=== PATIENT | female | born 1965 | race Caucasian/White ===

== ENCOUNTER 2018-01-25 09:43 | Emergency (ER) | payer MEDICAID ==
[2018-01-25 09:51] VITALS: BP 120/83
--- NOTE | 2018-01-25 10:04 | EDPHY ---
H & P Stated Complaint: right eye visual changes starting suddenly this morning Time Seen by Provider: 01/25/18 10:01 HPI/ROS: HPI: This is a 52-year-old female who presents with Chief Complaint: right eye visual changes starting suddenly this morning Location: Right eye Quality: Visual changes Duration: 1 hr prior to arrival Signs and Symptoms: no fever, no nausea, no vomiting, no photophobia, no noise sensitivity, no neck stiffness, no ear pain, no tinnitus, no nasal congestion, no sinus pressure, no weakness, no radiation, no aura, + floaters Timing: Acute Severity: [id number] Context: Patient has a history of optic migraines, presents with sudden onset of matting in her peripheral vision starting approximately 1 hr prior to arrival. She reports that she normally gets floaters and aura with her optic migraines and no actual headache. She reports that this feels different. She reports that she can see things but they are significantly decreased in her periphery on the right. This is abnormal for her. She has no nausea, vomiting , pain. Modifying Factors: None Comment: ROS: see HPI Constitutional: No fever, no chills, no weight loss Eyes: No blurred vision Respiratory: No shortness of breath, no cough Cardiovascular: No chest pain, no palpitations Gastrointestinal: No nausea, no vomiting, no diarrhea, no hematemesis, no blood in stool Genitourinary: No dysuria, no blood in urine Extremities: No myalgias, no edema Neurologic: No weakness, no numbness Skin: No rashes, no petechiae Hematologic: No bruising, no bleeding MEDICAL/SURGICAL/SOCIAL HISTORY: Medical history: Generally healthy. Does not take any regular medications. Surgical history: Denies Social history: Family history noncontributory. General appearance: Overweight middle-aged white female, awake and alert, polite and cooperative Visual Acuity: noted from Nurse's notes. Pupils: equal round and reactive to light. EOMI. Lids: no edema or swelling Skin: no proptosis, no periorbital erythema or swelling, no vesicles Conjunctivae: not injected, no discharge Source: Patient Exam Limitations: No limitations - Personal History LMP (Females 10-55): Post Menopausal - Medical/Surgical History Hx Asthma: No Hx Chronic Respiratory Disease: No Hx Diabetes: No Hx Cardiac Disease: No Hx Renal Disease: No Hx Cirrhosis: No Hx Alcoholism: No Hx HIV/AIDS: No Hx Splenectomy or Spleen Trauma: No Other PMH: hypothyroid, ortho sx - Social History Smoking Status: Never smoked Constitutional: Initial Vital Signs Temperature (C) 36.6 C 01/25/18 09:48 Heart Rate 94 01/25/18 09:48 Respiratory Rate 18 01/25/18 09:48 Blood Pressure 120/83 H 01/25/18 09:48 O2 Sat (%) 93 01/25/18 09:48 O2 Delivery Mode Room Air Allergies/Adverse Reactions: No Known Allergies Allergy (Unverified 01/25/18 09:47) Home Medications: Medication Instructions Recorded Effexor Xr 01/25/18 Liothyronine Sodium 01/25/18 Synthroid 01/25/18 Medical Decision Making ED Course/Re-evaluation: Vital signs reviewed and stable upon arrival. Patient has peripheral right sided decreased vision. Etiology is optic migraine versus retinal pathology. ED decision to consult retinal specialist, Dr. Garcia, who advises to sent patient directly to her office from the emergency room for further evaluation. Patient is very concerned about her retina and is appreciative to be seen by retinal specialist. This patient was seen under the supervision of my secondary supervising physician. I evaluated care for this patient independently. Discussed this patient with Dr. Valera. Differential Diagnosis: Headache including but not limited to subarachnoid hemorrhage, migraine headache , tension headache and infectious causes such as meningitis, pharyngitis and sinusitis. Departure - Departure Disposition: Home, Routine, Self-Care Clinical Impression: Decreased peripheral vision of right eye Condition: Good Instructions: Ocular Migraine (ED) Additional Instructions: Please go directly to Dr. Garcia's office for further evaluation of your retina. Referrals: Karen Garcia MD [Non Staff Provider (MD)] - As per Instructions
== END 2018-01-25 10:20 | disposition home or self-care (01) ==
DX: H53.9 Unspecified visual disturbance (principal)

== ENCOUNTER 2018-09-12 10:09 | Emergency (ER) | payer MEDICAID ==
--- NOTE | 2018-09-12 10:31 | EDPHY ---
H & P Stated Complaint: umbillical abscess Time Seen by Provider: 09/12/18 10:16 HPI/ROS: CHIEF COMPLAINT: Possible umbilical abscess HISTORY OF PRESENT ILLNESS: 52-year-old immunocompetent female history of abdominoplasty 7 years ago with surgical umbilicus at that time, initially reported on 08/22/2018 erythema discharge from her umbilicus, seen at [facility] where she had incision and drainage. She has been following up at [facility] urgent care. Today when she returned the noted continued drainage and recommend she go to the ER for evaluation of possible deep space abscess. The patient notes pain in the umbilical region as well as continued purulent drainage with fetid odor. REVIEW OF SYSTEMS: 10 systems reviewed and negative with the exception of the elements mentioned in the history of present illness PAST MEDICAL & SURGICAL HISTORY: Abdominoplasty 7 years ago SOCIAL HISTORY: Nonsmoker. PHYSICAL EXAM (Prior to examination, patient consented to physical exam, hands were washed and my usual and customary physical exam procedures followed) 1) GENERAL: Well-developed, well-nourished, alert and oriented. Appears to be in no acute distress. 2) HEAD: Normocephalic, atraumatic 3) HEENT: Pupils equal, round, reactive to light bilaterally. Sclera anicteric. Nasopharynx, oropharynx, clear, no lesions. Moist Mucous membranes. 4) NECK: Full range of motion, no meningeal signs. 5) LUNGS: Clear auscultation bilaterally, no wheezes, no rhonchi, no retractions. 6) HEART: Regular rate and rhythm, no murmur, no heave, no gallop. 7) ABDOMEN: No guarding, no rebound, no focal tenderness, . No peritoneal sign. There is fetid odor and drainage from the umbilicus as well as associated tenderness., subacute incision noted with granulating tissue. Mild amount of fluctuance at said area. Mild amount of halo erythema. 8) MUSCULOSKELETAL: Moving all extremities, no focal areas of tenderness, no obvious trauma. No peripheral edema or discoloration. 9) BACK: No CVA tenderness, no midline vertebral tenderness, no fluctuance, no step-off, no obvious trauma, no visual or palpable abnormality. 10) SKIN: No rash, no petechiae. 11) Psychiatric: Patient is oriented X 3, there is no agitation. DIFFERENTIAL DIAGNOSIS: In no particular order including but not limited to cellulitis, abscess, hernia - Medical/Surgical History Hx Asthma: No Hx Chronic Respiratory Disease: No Hx Diabetes: No Hx Cardiac Disease: No Hx Renal Disease: No Hx Cirrhosis: No Hx Alcoholism: No Hx HIV/AIDS: No Hx Splenectomy or Spleen Trauma: No Other PMH: hypothyroid, ortho sx - Social History Smoking Status: Never smoked Constitutional: Initial Vital Signs Temperature (C) 37.1 C 09/12/18 10:28 Heart Rate 102 H 09/12/18 10:28 Respiratory Rate 18 09/12/18 10:28 Blood Pressure 177/121 H 09/12/18 10:28 O2 Sat (%) 94 09/12/18 10:28 O2 Delivery Mode Room Air Allergies/Adverse Reactions: No Known Allergies Allergy (Verified 09/12/18 10:27) Home Medications: Medication Instructions Recorded Liothyronine Sodium 01/25/18 Synthroid 01/25/18 Cephalexin [Keflex] 500 mg PO TID 7 Days cap 09/12/18 VENLAFAXINE HCL 09/12/18 VYVANSE 09/12/18 Medical Decision Making - Diagnostics Imaging Results: Imaging Impressions Abdomen CT 09/12/18 11:22 Impression: 1. Superficial umbilical inflammation. No abdominal wall abscess, umbilical hernia, or inflammatory extension into the peritoneal space. 2. Constipation. Normal bowel pattern. 3. Uterine leiomyoma. Findings discussed with emergency department physician assistant professor of radiology, Earnest Johnson PA-C on September 12, 2018 at 11:54 a.m. Images reviewed myself Procedures: Procedure: Abscess drainage. The patient's suspected abscess was located on the umbilicus. I obtained verbal consent from the patient to drain the abscess who was informed about the possibility of bleeding and pain. The abscess was incised with a scalpel and no purulent drainage was expressed. I irrigated the wound and placed some packing. The patient tolerated the procedure well. The procedure was performed by myself. ED Course/Re-evaluation: Reviewed the patient's old medical records as well including her wound culture dated 08/22/2018 positive for Actinomyces europaeus. Here in emergency department CT was performed to evaluate for deep space infection or fistula. There is no evidence of this on exam. I reopened her small incision and there is no release of purulent material. There was no material to culture. A piece of packing was placed in this area. I am starting the patient on Keflex which should provide coverage for Actinomyces spp. Recommend she follow up in 2 days with General surgery on-call Dr. Mackey or his associates (today is Thursday) - Data Points Laboratory Results: Laboratory Results 09/12/18 10:40 09/12/18 10:40 09/12/18 09/12/18 09/12/18 10:40 10:40 10:40 WBC 7.41 10^3/uL 10^3/uL (3.80-9.50) RBC 4.09 10^6/uL L 10^6/uL (4.18-5.33) Hgb 13.1 g/dL g/dL (12.6-16.3) Hct 38.5 % % (38.0-47.0) MCV 94.1 fL fL (81.5-99.8) MCH 32.0 pg pg (27.9-34.1) MCHC 34.0 g/dL g/dL (32.4-36.7) RDW 12.5 % % (11.5-15.2) Plt Count 248 10^3/uL 10^3/uL (150-400) MPV 9.1 fL fL (8.7-11.7) Neut % (Auto) 56.2 % % (39.3-74.2) Lymph % (Auto) 32.3 % % (15.0-45.0) [place] % (Auto) 8.2 % % (4.5-13.0) Eos % (Auto) 2.4 % % (0.6-7.6) Baso % (Auto) 0.8 % % (0.3-1.7) Nucleat RBC Rel Count 0.0 % % (0.0-0.2) Absolute Neuts (auto) 4.16 10^3/uL 10^3/uL (1.70-6.50) Absolute Lymphs (auto) 2.39 10^3/uL 10^3/uL (1.00-3.00) Absolute Monos (auto) 0.61 10^3/uL 10^3/uL (0.30-0.80) Absolute Eos (auto) 0.18 10^3/uL 10^3/uL (0.03-0.40) Absolute Basos (auto) 0.06 10^3/uL 10^3/uL (0.02-0.10) Absolute Nucleated RBC 0.00 10^3/uL 10^3/uL (0-0.01) Immature Gran % 0.1 % % (0.0-1.1) Immature Gran # 0.01 10^3/uL 10^3/uL (0.00-0.10) PT 11.3 SEC L SEC (12.0-15.0) INR 0.85 (0.83-1.16) APTT 28.8 SEC SEC (23.0-38.0) VBG Lactic Acid Sodium Potassium Chloride Carbon Dioxide Anion Gap BUN Creatinine Estimated GFR Glucose Calcium Total Bilirubin Beta HCG, Qual NEGATIVE 09/12/18 09/12/18 10:40 10:40 WBC RBC Hgb Hct MCV MCH MCHC RDW Plt Count MPV Neut % (Auto) Lymph % (Auto) [place] % (Auto) Eos % (Auto) Baso % (Auto) Nucleat RBC Rel Count Absolute Neuts (auto) Absolute Lymphs (auto) Absolute Monos (auto) Absolute Eos (auto) Absolute Basos (auto) Absolute Nucleated RBC Immature Gran % Immature Gran # PT INR APTT VBG Lactic Acid 1.6 mmol/L mmol/L (0.7-2.1) Sodium 137 mEq/L mEq/L (135-145) Potassium 4.4 mEq/L mEq/L (3.5-5.2) Chloride 106 mEq/L mEq/L (97-110) Carbon Dioxide 21 mEq/l L mEq/l (22-31) Anion Gap 10 mEq/L mEq/L (6-14) BUN 21 mg/dL mg/dL (7-23) Creatinine 0.8 mg/dL mg/dL (0.6-1.0) Estimated GFR > 60 Glucose 115 mg/dL H mg/dL (70-100) Calcium 9.8 mg/dL mg/dL (8.5-10.4) Total Bilirubin 0.4 mg/dL mg/dL (0.1-1.4) Beta HCG, Qual Medications Given: Discontinued Medications Sodium Chloride (Ns) 1,000 mls @ 0 mls/hr IV ONCE ONE PRN Reason: Wide Open Stop: 09/12/18 10:33 Last Admin: 09/12/18 10:48 Dose: 1,000 mls Departure - Departure Disposition: Home, Routine, Self-Care Clinical Impression: Cutaneous abscess of umbilicus Condition: Good Instructions: Abscess (ED) Additional Instructions: Return to emergency department if you develop abdominal pain, fever, chills or any other symptoms that concern you. Referrals: Sanya Mackey MD [Medical Doctor] - 09/14/18 Prescriptions: Cephalexin [Keflex] 500 mg PO TID 7 Days cap
[2018-09-12] MEDS ORDERED: NS 1,000 ML IV ONE (10:32)
[2018-09-12 10:58] LABS: PLATELET COUNT 248 10^3/uL (150-400)
[2018-09-12 11:17] LABS: INR 0.85 (0.83-1.16); PROTIME(PATIENT) 11.3 SEC (12.0-15.0)
[2018-09-12] MEDS ORDERED: IOPAMIDOL (ISOVUE-300) 100 ML BTL ONE (11:28)
[2018-09-12 14:20] VITALS: BP 119/78
== END 2018-09-12 14:20 | disposition home or self-care (01) ==
PROC: 0H97XZZ Drainage of Abdomen Skin, External Approach (ICD-10-PCS; principal; 2018-09-12)
DX: L02.216 Cutaneous abscess of umbilicus (principal); E86.9 Volume depletion, unspecified; E03.9 Hypothyroidism, unspecified
CPT/HCPCS: Q9967